=== PATIENT | male | born 1945 | race Caucasian/White ===

== ENCOUNTER 2024-04-05 08:22 | Inpatient (IN) | payer OTHER, SELFPAY ==
[2024-04-01 16:14] VITALS: BP 163/99
[2024-04-01 16:37] LABS: Urine Albumin Trace (Neg - Trace); Urine Bilirubin Negative (Negative); Urine Character Clear (Clear); Urine Color Yellow; Urine Glucose Negative (Negative); Urine Ketone 2+ (Negative); Urine Leukocyte Negative (Negative); Urine Nitrite Negative (Negative); Urine Occult Blood Negative (Negative); Urine Specific Gravity 1.025 (<1.030); Urine Urobilinogen Negative (Neg - 1+)
[2024-04-01 16:42] LABS: % Basophils 0.3 % (0-2); % Eosinophils 0.5 % (0-6); % Immature Granulocytes 0.3 % (0-0.5); % Monocytes 7.8 % (1.7-9.3); % Neutrophils 79.1 % (42.2-75.2); Absolute Lymphocytes 0.9 10^3/uL (1.2-3.4); Absolute Monocytes 0.6 10^3/uL (0.1-0.6); Hematocrit 39.1 % (39.0-52.0); Hemoglobin 14.2 g/dL (13.0-18.0); Mean Corp Hgb Conc. 36.3 g/dL (33.0-37.0); Mean Corpuscular Hgb 31.7 pg (27.0-31.0); Mean Corpuscular Volume 87.3 fL (80.0-94.0); Mean Platelet Volume 12.2 fL (7.4-10.4); Nucleated Red Blood Cells % 0 % (-); Platelet Count 176 10^3/uL (130-400); Red Blood Cell Count 4.48 10^6/uL (4.70-6.10); Red Cell Dist. Width 14.1 % (11.5-14.5); White Blood Cell Count 7.6 10^3/uL (4.8-10.8)
[2024-04-01 16:50] LABS: ALT (SGPT) 25 U/L (0-50); AST (SGOT) 35 U/L (17-59); Albumin 4.6 g/dl (3.5-5.0); Alkaline Phosphatase 83 U/L (38-126); Blood Urea Nitrogen 19 mg/dl (9-20); Calcium 9.7 mg/dl (8.4-10.2); Carbon Dioxide 31 mmol/L (22-30); Chloride 99 mmol/L (98-107); Glucose 104 mg/dl (70-99); Potassium 4.5 mmol/L (3.5-5.1); Sodium 141 mmol/L (135-145); Total Bilirubin 1.3 mg/dl (0.2-1.3); Total Protein 7.3 g/dl (6.3-8.2); eGFR > 60.00
[2024-04-01 19:05] VITALS: BP 165/94
--- NOTE | 2024-04-01 20:04 | ED.GENMED ---
History of Present Illness
General
Chief Complaint: Weakness
Source: patient
Exam Limitations: none
Time Seen by Provider: 04/01/24 17:58
History of Present Illness
History of Present Illness:
78-year-old male presents with rather abrupt change in mental status. He lives by himself. He typically is very functional. Family notes that he has been repeating himself over the past several months however it significantly got worse over the
past several days. He keeps saying that he should have let it go on this far and when asked to elaborate he is unable to express his thoughts. Patient denies headache chest pain abdominal pain or shortness of breath. He denies any unilateral
numbness or tingling. Family describes that he has been having trouble completing sentences. They describe that something is worrying him he is not sleeping.
Phy Exam
Physical Exam
Physical Exam:
General: Well-appearing male no acute respiratory distress
HEENT: Normocephalic atraumatic mucosa moist
Heart: Regular rate and rhythm no murmurs
Lungs: Clear no wheeze
Abdomen is soft nontender nondistended no guarding rebound normal bowel sounds
Neurologic exam: Alert oriented to person and place and time. No unilateral deficit on exam. When asked questions at times he fades off in the middle of a sentence and forgets his thought process. He does repeat himself throughout the exam. No
facial asymmetry
Course
Orders/Labs/Results
Orders:
Orders
04/01/24 16:17
Electrocardiogram (*1) Urgent
Reason for Study: Other
Other Reason for Exam: Possible Sepsis
04/01/24 16:18
EKG- Treatment ONCE
04/01/24 16:27
Comprehensive Metabolic Panel Urgent
04/01/24 16:28
Complete Blood Count/With Diff Urgent
Urinalysis Reflex To Culture Urgent
Date Specimen was Collected: 04/01/24
Time Specimen was Collected: 16:18
04/01/24 18:24
CT Head W/o Iv Contrast Urgent
Comment:
Reason For Exam: confusion
Abnormal Lab Results
04/01/24 04/01/24
16:27 16:28
RBC 4.48 L 10^6/uL
(4.70-6.10)
MCH 31.7 H pg
(27.0-31.0)
MPV 12.2 H fL
(7.4-10.4)
Absolute Lymphs (auto) 0.9 L 10^3/uL
(1.2-3.4)
Neutrophils % 79.1 H %
(42.2-75.2)
Lymphocytes % 12.0 L %
(20.5-51.1)
Carbon Dioxide 31 H mmol/L
(22-30)
Glucose 104 H mg/dl
(70-99)
Urine Ketones 2+ A
(Negative)
04/01/24 16:28
04/01/24 16:27
Vital Signs
Initial and Last Documented VS:
Initial Vital Signs
Temp Pulse Resp BP Pulse Ox
98 F 76 18 163/99 99
04/01/24 16:14 04/01/24 16:14 04/01/24 16:14 04/01/24 16:14 04/01/24 16:14
Last Documented Vital Signs
Temp Pulse Resp BP Pulse Ox
98 F 76 13 165/94 99
04/01/24 16:14 04/01/24 19:15 04/01/24 19:15 04/01/24 19:05 04/01/24 16:14
MDM/Problems Addressed
Differential Diagnosis Includes:
Change in mental status. Consider underlying process versus electrolyte abnormality versus TIA
Workup here initiated with blood work urinalysis and CT of head. CT of the head was negative. Labs without significant finding urinalysis negative. Patient has abruptly changed his mental status and is not back to baseline. Discussed with
patient and family treatment options. At this point, will keep in hospital for further evaluation
*Critical Care Note
Total Time (30-74mins, 75-104mins- exclusive of procedures): Not Applicable
ED Attending Note
-
Portions of this chart may have been created with voice recognition software.� Occasional wrong word or��sound alike� substitutions may have occurred due to the inherent limitations of voice recognition software.
Discharge Plan
Departure
Patient Disposition: Admit
Date of Disposition: 04/01/24
Time of Disposition: 20:41
Presentation/result/management discussed w/ accepting MD/DO: Hospitalist
Discharge Problem:
Altered mental status
Prescriptions:
No Action
atenolol 25 MG tablet
25 mg PO DAILY
docosahexaenoic acid-epa 1 CAP capsule
1 cap PO DAILY
red yeast rice 600 MG capsule
600 mg PO DAILY
multivitamin with folic acid [Tab-A-Sumaya] 1 TABLET tablet
1 tab PO DAILY
Referrals:
Kecia Mock PA-C [Family Provider] -
Interventions
Interventions:
*Risk Screen - Suicide Last Done: 04/01/24 20:22
*Neglect/Abuse Screening Last Done: 04/01/24 20:22
ED- Cardiac Assessment Last Done: 04/01/24 19:06
ED- Neurological Assessment Last Done: 04/01/24 19:06
ED- Pulmonary Assessment Last Done: 04/01/24 19:06
Discharge Date and Time
Print Language: SETSWANA
--- NOTE | 2024-04-01 21:41 | HPS.HSE ---
Family Physician
-
Family Physician: Kecia Mock
Chief Complaint
-
Confusion
History of Present Illness
Patient is a 78y M with PMH significant for hypertension and PAD who presents to ED for evaluation of confusion. History obtained from patient and his daughter at the bedside. Daughter states that patient has experienced a functional decline
over the past several months with decreased appetite, decreased energy, difficulty sleeping and some forgetfulness / word-finding issues. Over the past 1-2 weeks these symptoms have seemed more severe. Today the patient did not show up for his
usual latter-day services. Friends went to check on his and found him sitting in his chair at home - apparently too weak / tired to stand.
Patient was brought to the ED for further evaluation and treatment.
At the time of my examination in the ED, patient complains of feeling tired but has no other specific complaints. He specifically denies F/C, chest pain / dyspnea, N/V/D or urinary complaints.
Medical History
Past Medical History
Past Medical History: Reports Other
Additional Past Medical History:
Hypertension
ASCVD / PAD
Nephrolithiasis
Past Surgical History: Reports Other
Additional Past Surgical History:
LLE Fem-Pop Bypass
Social History
Tobacco: Non-smoker
Alcohol: None
Drug: None
Family History
Family History: Other (Father: CAD)
Allergies / Home Medications
Allergies reflects when Allergies were last updated in [facility].
Home Medications with original date entered in [facility]
Allergy/Medication List:
Allergies
Allergy/AdvReac Type Severity Reaction Status Date / Time
No Known Allergies Allergy Verified 04/01/24 16:14
Home Medications
atenolol 25 mg tablet 25 mg PO DAILY 01/22/10
docosahexaenoic acid (dha)-epa 120 mg-180 mg capsule 1 cap PO DAILY 01/22/10
multivitamin with folic acid 400 mcg tablet (Tab-A-Sumaya) 1 tab PO DAILY 01/22/10
red yeast rice 600 mg capsule 600 mg PO DAILY 01/22/10
Review of Systems
-
History Source: Patient
A 12 point ROS was completed and negative except as noted: Yes
Constitutional: Reports Fatigue; Denies Fever or Chills
EENT: Denies Sore Throat
Respiratory: Denies Cough or Trouble Breathing
Cardiac: Denies Chest Pain or Palpitations
Abdomen/GI: Reports Anorexia; Denies Abdominal Pain, Nausea, Vomiting or Diarrhea
: Denies Dysuria, Frequency or Flank Pain
Musculoskeletal: Denies Joint Pain or Edema
Neurological: Reports Weakness; Denies Dizzy, Headache or Numbness
Psych: Reports Dementia; Denies Depression or Anxiety
Physical Exam
Vital Signs
Vital Signs
Temp Pulse Resp BP Pulse Ox
98 F 76 13 165/94 99
04/01/24 16:14 04/01/24 19:15 04/01/24 19:15 04/01/24 19:05 04/01/24 16:14
Physical Exam
General: Other (78y M in no acute distress. Patient with flat affect. Mild tremor.)
HEENT: Moist mucous membranes and PERRLA
Respiratory: Clear; No Wheezes, Rales or Rhonchi
Cardiac: S1/S2 and Regular Rhythm; No Murmur
GI: Soft, Non Tender, Non Distended, Normal Bowel Sounds and Other (Umbilical hernia without tenderness.)
Musculoskeletal: No Clubbing, No Cyanosis and No Edema
Neuro: Awake, Alert, Oriented and Other (Oriented x 3, Somewhat slow speech. Bradykinesia, flat affect.)
Psych: No Agitated or Anxious
Laboratory Results
-
04/01/24 16:28
04/01/24 16:27
Laboratory Results
Total Bilirubin 1.3 mg/dl (0.2-1.3) 04/01/24 16:27
AST 35 U/L (17-59) 04/01/24 16:27
ALT 25 U/L (0-50) 04/01/24 16:27
Alkaline Phosphatase 83 U/L (38-126) 04/01/24 16:27
Impression/Plan
-
A/P: Patient is a 78y M with PMH significant for hypertension and ASCVD / PAD who presents to ED for evaluation of increased confusion, weakness and fatigue.
Change in Mental Status
Confusion
Fatigue
- Observe overnight for further evaluation and treatment.
- Evaluation in the ED thus far has been unremarkable.
- Examination is concerning for Parkinsonian features.
- Seems likely that current symptoms reflect progression of underlying process.
- Check MRI in AM for completeness.
- Neurology and Case Management evaluations.
- Follow for any evidence of new / acute symptoms.
Benign Hypertension
- Stable. Need to formalize med rec.
- Patient states that he takes atenolol and metoprolol - which certainly could contribute to degree of fatigue.
- Will continue with Toprol dose for now (as noted in External Med Summary).
- Adjust regimen ad needed for normotension.
ASCVD / PAD
- Stable. s/p prior L Fem-Pop bypass.
- No current complaints / concerns.
- ASA daily.
DVT Prophylaxis: SCDs
Code Status: Full
[2024-04-01 21:52] VITALS: BP 149/98
[2024-04-01 22:50] VITALS: BP 159/94; BMI 20.1
--- NOTE | 2024-04-01 22:57 | PTCARENOTE ---
Pt arrived onto floor @2257. Pt able to walk into room with no assistance. Pt AAOx3, with no complaints of pain or SOB at this time. Pt oriented to room and call cummings; will continue to monitor.
[2024-04-01] MEDS: NSS 1000 IV (23:32)
[2024-04-02] VITALS (7 sets, daily range): BP systolic 100–162; BP diastolic 61–91; PULSE 70–80; BMI 20.2
[2024-04-02 07:09] LABS: Hematocrit 37.7 % (39.0-52.0); Hemoglobin 13.1 g/dL (13.0-18.0); Mean Corp Hgb Conc. 34.7 g/dL (33.0-37.0); Mean Corpuscular Hgb 31.1 pg (27.0-31.0); Mean Corpuscular Volume 89.5 fL (80.0-94.0); Mean Platelet Volume 12.2 fL (7.4-10.4); Platelet Count 184 10^3/uL (130-400); Red Blood Cell Count 4.21 10^6/uL (4.70-6.10); Red Cell Dist. Width 14.1 % (11.5-14.5); White Blood Cell Count 6.4 10^3/uL (4.8-10.8)
[2024-04-02 07:30] LABS: Blood Urea Nitrogen 22 mg/dl (9-20); Calcium 9.3 mg/dl (8.4-10.2); Carbon Dioxide 29 mmol/L (22-30); Chloride 104 mmol/L (98-107); Estimated Creatinine Clearance 68 ml/min; Glucose 99 mg/dl (70-99); HDL Cholesterol 67 mg/dl; LDL Cholesterol, Calculated 64 mg/dl; Potassium 4.1 mmol/L (3.5-5.1); Sodium 141 mmol/L (135-145); Total Cholesterol 140 mg/dl (50-199); Triglyceride 48 mg/dl (10-149); Very Low Density Lipoprotein 9 mg/dl (0-30); eGFR > 60.00
[2024-04-02 07:57] LABS: TSH Reflex To Free T4 1.31 uIU/ml (0.47-4.68)
[2024-04-02 08:40] LABS: Ferritin 37.7 ng/ml (17.9-464.0)
[2024-04-02] MEDS: TOPROL XL 25 MG PO (08:47)
[2024-04-02] MEDS: LOW STRENGTH ASPIRIN 81 MG PO (08:47)
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
[2024-04-02 09:11] LABS: Folate > 20.0 ng/ml (2.76-20); Vitamin B12 456 pg/ml (239-931)
[2024-04-02 09:24] LABS: Erythrocyte Sed Rate 12 mm/hour (0-20)
[2024-04-02] MEDS: NSS 1000 IV (12:30)
--- NOTE | 2024-04-02 14:49 | W.PN.HOSP.TC ---
Today's Communication/Plan
-
.
Assessment / Plan
Assessment / Plan
Frail but comfortable in bed
Scleral anicteric
Moist mucous membranes
No JVD
CTA bilateral
Normal S1-S2 no murmurs
Soft nontender nondistended bowel sounds active
No peripheral pitting edema
Moves extremities spontaneously
AA
Toxic metabolic encephalopathy versus progressive decline in mental status possibly related to worsening Parkinson's versus depression versus dementia versus infection.
Check MRI
EEG
Neurology consult
LP
RPR TSH B12 folate HIV.
Hypertension continue antihypertensives
ASCVD/PAD
Continue aspirin
Anticipated Discharge: 24 - 48 hours
Subjective/Interval History
-
Date of Service: April 02, 2024
Seen and examined. No new. No acute overnight events.
Son at bedside. Provided update. Checking MRI. Neurology to evaluate.
Objective Data
-
Labs:
Laboratory Results
04/02/24
06:21
WBC 6.4
Hgb 13.1
Hct 37.7 L
Plt Count 184
Sodium 141
Potassium 4.1
Chloride 104
Carbon Dioxide 29
BUN 22 H
Creatinine 0.8
Glucose 99
Calcium 9.3
Vital Signs:
Vital Signs
Temp Pulse Resp BP Pulse Ox
97.8 F 73 20 146/78 99
04/02/24 11:08 04/02/24 11:08 04/02/24 11:08 04/02/24 11:08 04/02/24 11:08
--- NOTE | 2024-04-02 16:52 | CM ---
bond manager reviewed patient's chart and met with patient and patient lives alone in a split level home, patient is independent with adl's and ambulation, no dme.
Pharmacy: [facility]
PCP: Kecia Mock
Plan; Home when stable, no needs.
--- NOTE | 2024-04-02 18:16 | W.PN.UPDATE ---
Update Note
Progress Note Update
Notified by nursing staff that patient had an unwitnessed fall in the bathroom.
Patient reports being on the toilet, and sliding forward, using his knees to break the fall.
Details after that are vague. He describes hitting his right cheek against the plastic commode.
No loss of consciousness. Currently there is tenderness, no crepitus.
Will check CT facial bones.
--- NOTE | 2024-04-02 19:14 | FALL ---
Description of Fall:
434-2 Alexi Castillo fell from the toilet in the bathroom. He hit hid right cheek on a bedside commode that was in front of him there.
Injuries Noted:
He has pain there 6/10 on his R cheek bone. There is no break in the skin but it is slightly reddened.
Action Taken:
notified. CT scan ordered
Name of Provider Notified:
[2024-04-02] MEDS: TYLENOL 650 MG PO (20:33)
[2024-04-03] VITALS (9 sets, daily range): BP systolic 132–174; BP diastolic 77–99; PULSE 65–82
[2024-04-03] MEDS: NSS 1000 IV (05:01)
[2024-04-03] MEDS: TOPROL XL 25 MG PO (07:27)
[2024-04-03] MEDS: LOW STRENGTH ASPIRIN 81 MG PO (07:28)
--- NOTE | 2024-04-03 09:10 | EEG.RPT ---
Electroencephalogram Report
Recording
Date of EE04/03/24
Type of EEG: Routine
Length of EEG recordin minutes
Done with Video Recording: Yes
Patient Status: Inpatient
Recording Conditions: Awake and Drowsy
Hyperventilation Performed: No
Photic Stimulation Performed: Yes
Report
LESS THAN 1 HOUR EEG REPORT
EEG INTERPRETATION:
Unremarkable EEG for age
CLINICAL CORRELATION:
A normal EEG does not rule out a diagnosis of epilepsy. If clinical suspicion for seizure persists, a prolonged recording may be warranted.
Clinical correlation is advised.
METHODS:
A 21 channel digitized electroencephalogram (EEG) was performed in the Clinical Neurophysiology Laboratory. The 10/20 international system of electrode placement was used with ECG and lateral/vertical eye movements recorded. Persyst quantitative EEG
analysis was performed.
ELECTROENCEPHALOGRAPHER IMPRESSION(S):
Quality of study
Good
Background
Unremarkable, well maintained, medium amplitude alpha-frequency and unremarkable anterior-posterior voltage gradient
With eye opening the background activity changed to a low voltage mixture of frequencies.
Sleep
Drowsiness present
Photic Stimulation
Did not activate the record
ECG
Normal sinus rhythm
--- NOTE | 2024-04-03 11:26 | CM ---
Addendum entered by Colleen Pedro 04/03/24 15:37:
manager planning received a request from physician for possible options after discharge, plan is to home and family and patient is now agreeable to visiting nurses, options were reviewed and patient is agreeable to VN, rn case management discussed with
patient's son other options for care after discharge, per family they plan on staying with patient and then after that the are looking into assisted living, list of Memory Care facilities provided to patient, adult daycare and private duty nursing
also provided.
Plan; Home with VN
Original Note:
manager planning reviewed patient's chart and patient did well with physical therapy, plan is to home when stable.
Plan; Home when stable, no needs.
--- NOTE | 2024-04-03 15:37 | PTOTSP ---
DYE HOUSE VAT WORKER Evaluation
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
Quick Aphasia Battery Form 1A QAB overall score = 6.48/10.00 (8.9-10=no aphasia). Significant points lost for delayed responses to auditory comprehension questions. Patient could not write. Strongly suspect cognitive linguistic impairment
impacting score with further testing warranted.
Recommend:
1. Outpatient DYE HOUSE VAT WORKER consult for LSVT LOUD evaluation and cognitive linguistic evaluation/therapy.
2. Will continue to follow at the acute care level.
3. Supervision/assistance with higher level cognitive tasks.
--- NOTE | 2024-04-03 15:52 | VNURNOTE ---
Attempted to meet with patient to explain VN services. Patient was working with PT. Liaison will try again later.
--- NOTE | 2024-04-03 16:18 | W.PN.NEURO.1 ---
Today's Communication / Plan
-
OP f/u with neurology
Neuro Assessment/Plan
Assessment
Subacute onset of change in mental status. 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 Daughter states today that he has had a tremor for about a year. Mental status has improved.
MRI brain showed:
No acute intracranial abnormality noted.
Sequelae of mild small vessel ischemic disease with mild global atrophy.
There is a 0.5 x 0.7 x 0.6 cm extra-axial lesion along the anterior right frontal lobe, likely a meningioma.
EEG was normal.
Plan
-Reviewed MRI brain and EEG findings with patient and his son and daughter at bedside.
-Needs OP f/u with neurology to start Sinemet; reviewed likely dx of PD, how it is treated
-OP f/u with neurosurgery re: meningioma
-continue treatment of vascular risk factors
-No need for LP given improvements.
-for OP PT/[facility] program enrollment
-Neurology is signing off. Please call with further questions.
Subjective/Objective
Subjective Data
Date of Service: April 03, 2024
mental status improved
Objective Data
Vital Signs
Temp Pulse Resp BP Pulse Ox
97.4 F 70 18 154/91 99
04/03/24 15:27 04/03/24 15:27 04/03/24 15:27 04/03/24 15:27 04/03/24 15:27
Lab Results
04/02/24 06:21
04/02/24 06:21
Sodium 141 mmol/L (135-145) 04/02/24 06:21
Potassium 4.1 mmol/L (3.5-5.1) 04/02/24 06:21
BUN 22 mg/dl (9-20) H 04/02/24 06:21
Glucose 99 mg/dl (70-99) 04/02/24 06:21
Calcium 9.3 mg/dl (8.4-10.2) 04/02/24 06:21
LDL Cholesterol, Calc 64 mg/dl 04/02/24 06:21
Vitamin B12 456 pg/ml (239-931) 04/02/24 06:21
Patient Allergies
No Known Allergies Allergy (Verified 04/01/24 16:14)
Physical Exam
-
The patient is awake, alert and oriented x 3. He is able to follow commands and answer questions appropriately. Speech is very hypophonic; responses are slow/+bradyphrenia; however, knows date, location, able to identify family members at bedside;
provides own history; -3 on backwards spelling at first and then corrected himself. On cranial nerve assessment, pupils are 3 mm bilateral, round and reactive to light and accommodation. Visual cruz are full. Extraocular movements are mildly
reduced with upgaze. Facial sensations are intact and bilaterally symmetrical, there is no facial asymmetry. Hearing is intact bilaterally to normal conversation volume. Tongue palate and uvula are midline. Sternocleidomastoid strengths are full
bilaterally. Motor strengths are 5/5 bilateral upper and lower extremities on medical research [place] scale. There is no drift. No tremor today. Does have mild to moderate cogwheeling in BUE. Deep tendon reflexes are 2+ bilateral upper and lower
extremities and Babinski is absent bilaterally. Sensations of touch, temperature are intact and bilaterally symmetrical. There was no extinction noted on double simultaneous stimulation. Coordination is intact by finger to nose bilaterally.
--- NOTE | 2024-04-03 16:23 | W.PN.HOSP.TC ---
Today's Communication/Plan
-
Discussed with son, Ronny in room. Will need to review with sisters dc planning with potential dc to son's home tomorrow and long-term plans to be established.
At this point, pt no longer appears to be able to continue to live independently
Assessment / Plan
Assessment / Plan
Toxic metabolic encephalopathy versus progressive decline in mental status possibly related to worsening Parkinson's versus depression versus dementia versus infection.
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
son was unaware of pt having been dx with Parkinsonism
MRI: No acute intracranial abnormality noted.
Sequelae of mild small vessel ischemic disease with mild global atrophy.
There is a 0.5 x 0.7 x 0.6 cm extra-axial lesion along the anterior right frontal lobe, likely a meningioma.
EEG unremarkable
Neurology consult appreciated, reviewed with Dr. Samuel, does not believe LP is indicated
RPR TSH B12 folate all normal
Hypertension continue antihypertensives
ASCVD/PAD
Continue aspirin
Reviewed with son potential long-term care options, including memory unit
Reviewed with CM, who will further elaborate on plans
Anticipated Discharge: Within 24 hours
Subjective/Interval History
-
Date of Service: April 03, 2024
Flat affect, decreased cognition
Objective Data
-
Vital Signs:
Vital Signs
Temp Pulse Resp BP Pulse Ox
97.4 F 70 18 154/91 99
04/03/24 15:27 04/03/24 15:27 04/03/24 15:27 04/03/24 15:27 04/03/24 15:27
I&O
04/02/24 04/03/24 04/04/24
06:59 06:59 06:59
Intake Total 1140 / 1140
Balance 1140 / 1140
Review of Systems
-
History Source: Family (son Mj in room, extensive discussion)
Constitutional: Denies Fever
EENT: Reports No Symptoms Reported
Respiratory: Reports No Symptoms
Cardiac: Reports No Symptoms
Abdomen/GI: Reports No Symptoms
Physical Exam
-
General: Well Developed, Well Nourished and No Apparent Distress
HEENT: Normocephalic, Atraumatic and Moist Mucous Membranes
Respiratory: Clear to Auscultation; Negative Wheezes, Rales or Rhonchi
Cardiac: Regular Rhythm and S1/S2
GI: Nontender and Nondistended
Musculoskeletal: No Clubbing, No Cyanosis and No Edema
Neuro: Awake and Other (significant cogwheel rigidity)
Psych: Calm
[2024-04-04] VITALS (9 sets, daily range): BP systolic 125–166; BP diastolic 63–101; PULSE 69–80
[2024-04-04] MEDS: TOPROL XL 25 MG PO (08:43)
[2024-04-04] MEDS: LOW STRENGTH ASPIRIN 81 MG PO (08:43)
--- NOTE | 2024-04-04 10:20 | VNURNOTE ---
Home Health Liaison spoke with son Mj to discuss [facility] nurse/therapy, visits, schedule and homebound status. He is agreeable and understands that visits at home will be 2-3 x per week to assess and teach medical management. Per son Mj, patient
has not seen PCP in a few years. Explained [facility] can start services after seen by PCP, since it has been > 1 year. Per son, PCP appt is scheduled in a week. He will try to move up appt. [facility] liaison contact information provided. Patient is aware
that [facility] will contact them for start of care in 1-2 days after discharge from .
[facility] referral completed in [facility].
--- NOTE | 2024-04-04 10:59 | PTCARENOTE ---
While working with therapy pt had an episode of weakness, needed assistance back to his chair. Vital signs stable , apple juice provided, patient was able to answer questions slowly but approptiately as is his baseline. Family interested in rehab
prior to patient going home. Hospitalist aware.
--- NOTE | 2024-04-04 15:32 | CM ---
Chart reviewed and per updated physical therapy notes and overall progress with nursing and therapy recommendation now is for skilled placement, options reviewed with patient and son and they are requesting skilled placement at [facility], referral
sent to [facility].
Plan; Skilled placement at [facility].
--- NOTE | 2024-04-04 19:40 | W.PN.HOSP.TC ---
Today's Communication/Plan
-
pending dc to snf as he is unstable on his feet
Assessment / Plan
Assessment / Plan
Toxic metabolic encephalopathy versus progressive decline in mental status possibly related to worsening Parkinson's versus depression versus dementia versus infection.
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
son was unaware of pt having been dx with Parkinsonism
MRI: No acute intracranial abnormality noted.
Sequelae of mild small vessel ischemic disease with mild global atrophy.
There is a 0.5 x 0.7 x 0.6 cm extra-axial lesion along the anterior right frontal lobe, likely a meningioma.
EEG unremarkable
Neurology consult appreciated, reviewed with Dr. Samuel, does not believe LP is indicated
RPR TSH B12 folate all normal
Hypertension continue antihypertensives
ASCVD/PAD
Continue aspirin
Reviewed with son potential longterm care options, including memory unit
Reviewed with CM, who will further elaborate on plans
Anticipated Discharge: Within 24 hours
Subjective/Interval History
-
Date of Service: April 04, 2024
Seen and examined. discussed case with son and dauther at bedside. potential start for sinemet, awaiitng to hear from Neurology about this.
Objective Data
-
Vital Signs:
Vital Signs
Temp Pulse Resp BP Pulse Ox
97.8 F 81 18 152/88 98
04/04/24 15:11 04/04/24 15:11 04/04/24 15:11 04/04/24 15:11 04/04/24 15:11
I&O
04/03/24 04/04/24 04/05/24
06:59 06:59 06:59
Intake Total 1140 / 1140 1140 / 1140 960 / 960
Balance 1140 / 1140 1140 / 1140 960 / 960
[2024-04-05] VITALS (9 sets, daily range): BP systolic 126–165; BP diastolic 84–99; PULSE 71–97; BMI 20.4
[2024-04-05] MEDS: LOW STRENGTH ASPIRIN 81 MG PO (08:33)
[2024-04-05] MEDS: TOPROL XL 25 MG PO (08:33)
--- NOTE | 2024-04-05 11:22 | CM ---
Addendum entered by Sirisha Gaspar 04/05/24 16:33:
Spoke with patient's daughter to discuss discharge plan
Explained that bed is available @ [facility] tomorrow; daughter is agreeable with father going to [facility]
Notified PT/OT and requested that they assess patient later today or first thing tomorrow to facilitate AUTH submission
Plan: Discharge to [facility] tomorrow pending AUTH approval
Original Note:
CM spoke with patient's daughter this morning to discuss discharge planning; she verified that family is agreeable to short term SNF placement
Daughter just called and requested that we send additional referrals. Referrals sent to [facility], [facility]; and [facility] just received a call from Edwin @ [facility]; the facility is interested pending bed availability at time of discharge; and reported they do not accept admissions over the weekend
Plan: discharge to SNF when medically stable pending bed availability and insurance AUTH approval
--- NOTE | 2024-04-05 14:13 | W.PN.NEURO.1 ---
Today's Communication / Plan
-
start Sinemet 25/100 TID
re: meningioma, right frontal, recheck MRI of brain with and without contrast in 2024
Neuro Assessment/Plan
Assessment
Subacute onset of change in mental status. 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 Daughter states today that he has had a tremor for about a year. Mental status has improved.
MRI brain showed:
No acute intracranial abnormality noted.
Sequelae of mild small vessel ischemic disease with mild global atrophy.
There is a 0.5 x 0.7 x 0.6 cm extra-axial lesion along the anterior right frontal lobe, likely a meningioma.
EEG was normal.
Plan
start Sinemet 25/100 TID
re: meningioma, right frontal, recheck MRI of brain with and without contrast in 2024
continue treatment of vascular risk factors
for OP PT/[facility] program enrollment as outpatient
BARBARA scan as outpatient
Please call with further questions.
Subjective/Objective
Subjective Data
Date of Service: April 05, 2024
Objective Data
Vital Signs
Temp Pulse Resp BP Pulse Ox
36.4 C 74 18 146/94 98
04/05/24 11:28 04/05/24 11:28 04/05/24 11:28 04/05/24 11:28 04/05/24 11:28
Lab Results
04/02/24 06:21
04/02/24 06:21
Sodium 141 mmol/L (135-145) 04/02/24 06:21
Potassium 4.1 mmol/L (3.5-5.1) 04/02/24 06:21
BUN 22 mg/dl (9-20) H 04/02/24 06:21
Glucose 99 mg/dl (70-99) 04/02/24 06:21
Calcium 9.3 mg/dl (8.4-10.2) 04/02/24 06:21
LDL Cholesterol, Calc 64 mg/dl 04/02/24 06:21
Vitamin B12 456 pg/ml (605-723) 04/02/24 06:21
Patient Allergies
No Known Allergies Allergy (Verified 04/01/24 16:14)
Past History
Past History
ED Past Medical History: HTN, Hypercholesterolemia and Other (PAD, mitral valve insufficiency)
ED Past Surgical History: Other (L fem-pop)
Social History
Tobacco: Non-smoker
Alcohol: None
Drug: None
Living: alone
Family History
Family History: Other (reviewed and non-contributory)
Medications
-
Medications:
Generic Name Dose Route Start Last Admin
Trade Name Freq PRN Reason Stop Dose Admin
Acetaminophen 650 mg 04/01/24 22:53 04/02/24 20:33
Acetaminophen 325 Mg Tablet PO 04/29/24 22:52 650 mg
Q4HPRN PRN Administration
Mild Pain / Temp > 101
Aspirin 81 mg 04/02/24 08:00 04/05/24 08:33
Aspirin 81 Mg Chewable Tablet PO 04/30/24 07:59 81 mg
DAILY LIGIA Administration
Metoprolol Succinate 25 mg 04/02/24 08:00 04/05/24 08:33
Metoprolol 25 Mg Extended Release Tablet PO 04/30/24 07:59 25 mg
DAILY LIGIA Administration
--- NOTE | 2024-04-05 14:36 | W.PN.HOSP.TC ---
Today's Communication/Plan
-
Start sienmet
DC to [facility] when bed available
Assessment / Plan
Assessment / Plan
NAD, sitting in bedside chair
Scleral anicteric, senile arcus
Moist mucous membranes
CTA bilateral
Normal S1-S2 no murmurs
Soft nontender nondistended bowel sounds active
No peripheral pitting edema
Moves extremities spontaneously, resting tremor
Flat affect
AAOx3
Toxic metabolic encephalopathy versus progressive decline in mental status possibly related to worsening Parkinson's versus depression versus dementia versus infection.
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
son was unaware of pt having been dx with Parkinsonism
MRI: No acute intracranial abnormality noted.
Sequelae of mild small vessel ischemic disease with mild global atrophy.
There is a 0.5 x 0.7 x 0.6 cm extra-axial lesion along the anterior right frontal lobe, likely a meningioma.
EEG unremarkable
Neurology consult appreciated, reviewed with Dr. Samuel, does not believe LP is indicated
- I spoke with neurology today. They will speak with family if agreeable start Sinemet.
Hypertension continue antihypertensives
ASCVD/PAD
Continue aspirin
Reviewed with son potential half-way care options, including memory unit
Reviewed with CM, who will further elaborate on plans
Awaiitng to hear back from [facility] if able to take.
Anticipated Discharge: Within 24 hours
Subjective/Interval History
-
Date of Service: April 05, 2024
Seen and examined. Sitting in bedside chair. Comfortable. Knows the day, where he is. Does not know why he is in the hospital though. Very flat affect. Resting tremor as well.
Objective Data
-
Vital Signs:
Vital Signs
Temp Pulse Resp BP Pulse Ox
97.6 F 74 18 146/94 98
04/05/24 11:28 04/05/24 11:28 04/05/24 11:28 04/05/24 11:28 04/05/24 11:28
I&O
04/04/24 04/05/24 04/06/24
06:59 06:59 06:59
Intake Total 1140 / 1140 960 / 960
Balance 1140 / 1140 960 / 960
[2024-04-05] MEDS: SINEMET 25-100 1 TABLET PO ×2 (14:41→22:17)
[2024-04-05] MEDS: SINEMET 25-100 PO (15:26)
[2024-04-06 03:25] VITALS: BP 137/82
[2024-04-06 07:40] VITALS: BP 158/90
[2024-04-06 08:54] VITALS: BP 157/94; PULSE 78; O2SAT 99
[2024-04-06] MEDS: TOPROL XL 25 MG PO (09:25)
[2024-04-06] MEDS: SINEMET 25-100 1 TABLET PO (09:26)
[2024-04-06] MEDS: LOW STRENGTH ASPIRIN 81 MG PO (09:26)
[2024-04-06 11:20] VITALS: BP 150/96
--- NOTE | 2024-04-06 12:59 | CM ---
Patient has been approved and a bed is available at [facility] today for patient, Auth for 5 days skilled [id number], NRD 04/10/24, follow up at [phone].
[facility]
Report [phone]

Plan; Skilled placement at [facility].
[2024-04-06 15:14] VITALS: BP 154/93
--- NOTE | 2024-04-06 15:29 | W.PN.HOSP.TC ---
Today's Communication/Plan
-
dc snf
Assessment / Plan
Assessment / Plan
NAD, sitting in bedside chair
Scleral anicteric, senile arcus
Moist mucous membranes
CTA bilateral
Normal S1-S2 no murmurs
Soft nontender nondistended bowel sounds active
No peripheral pitting edema
Moves extremities spontaneously, resting tremor
Flat affect
AAOx3
Toxic metabolic encephalopathy versus progressive decline in mental status possibly related to worsening Parkinson's versus depression versus dementia versus infection.
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
son was unaware of pt having been dx with Parkinsonism
MRI: No acute intracranial abnormality noted.
Sequelae of mild small vessel ischemic disease with mild global atrophy.
There is a 0.5 x 0.7 x 0.6 cm extra-axial lesion along the anterior right frontal lobe, likely a meningioma.
EEG unremarkable
Neurology consult appreciated, reviewed with Dr. Samuel, does not believe LP is indicated
- I spoke with neurology today. They will speak with family if agreeable start Sinemet.
Hypertension continue antihypertensives
ASCVD/PAD
Continue aspirin
Reviewed with son potential superintendent [employer] terminal care options, including memory unit
Reviewed with CM, who will further elaborate on plans
Awaiitng to hear back from [facility] if able to take.
Anticipated Discharge: Today
Subjective/Interval History
-
Date of Service: April 06, 2024
no new complaints
Objective Data
-
Vital Signs:
Vital Signs
Temp Pulse Resp BP Pulse Ox
97.6 F 84 18 154/93 99
04/06/24 15:14 04/06/24 15:14 04/06/24 15:14 04/06/24 15:14 04/06/24 15:14
I&O
04/05/24 04/06/24 04/07/24
06:59 06:59 06:59
Intake Total 960 / 960 960 / 960
Output Total 200 / 200
Balance 960 / 960 760 / 760
--- NOTE | 2024-04-06 15:32 | W.DCSUMMARY ---
Discharge Summary
Discharge Data
Date of Admission: 04/05/24
Date of Discharge: 04/06/24
-
Pending Results: No
Hospital Course
78M hx of HTN PAD presents for evaluation of confusion that has been worsening over the last couple of months and began rapidly worsening over the last [address] as below. MRI as below. EEG as below. Evaluated by neurology potential
concern for Parkinson's or Parkinson's with dementia based off of exam findings. Neurology recommended to start Sinemet for likely diagnosis of Parkinson's. Additionally as MRI reported meningioma neurology recommended outpatient neurosurgery
follow-up. Physical therapy evaluated initially was planning to discharge home however was unsteady without walker. Therefore has recommended discharge to SNF.
CT Brain
IMPRESSION:
No acute intracranial abnormality noted.
Brain MRI
IMPRESSION:
No acute intracranial abnormality noted.
Sequelae of mild small vessel ischemic disease with mild global atrophy.
There is a 0.5 x 0.7 x 0.6 cm extra-axial lesion along the anterior right frontal lobe, likely a meningioma.
EEG
INTERPRETATION:
Unremarkable EEG for age
Discharge Plan
-
Patient Disposition: Prison/SNF
Discharge Diagnosis/Procedures: Parkinsons +- dementia
HTN and PAD
Diet: As tolerated
Activity: As tolerated
Driving Restrictions: No driving
Activity Restrictions/Additional Instructions:
Presents for evaluation of confusion that has been worsening over the last couple of months and began rapidly worsening over the last [address] as below. MRI as below. EEG as below. Evaluated by neurology potential concern for Parkinson's
or Parkinson's with dementia based off of exam findings. Neurology recommended to start Sinemet for likely diagnosis of Parkinson's. Additionally as MRI reported meningioma neurology recommended outpatient neurosurgery follow-up. Physical therapy
evaluated initially was planning to discharge home however was unsteady without walker. Therefore has recommended discharge to SNF.
CT Brain
IMPRESSION:
No acute intracranial abnormality noted.
Brain MRI
IMPRESSION:
No acute intracranial abnormality noted.
Sequelae of mild small vessel ischemic disease with mild global atrophy.
There is a 0.5 x 0.7 x 0.6 cm extra-axial lesion along the anterior right frontal lobe, likely a meningioma.
EEG
INTERPRETATION:
Unremarkable EEG for age
Referrals:
Kecia Mock PA-C [Family Provider] -
Prescriptions:
New
aspirin 81 mg Tablet,Chewable
81 mg PO DAILY 30 Days Qty: 30 0RF
metoprolol succinate 25 mg Tablet Extended Release 24 Hr
25 mg PO DAILY 30 Days Qty: 30 0RF
carbidopa-levodopa 25-100 mg Tablet
1 tab PO TID 30 Days Qty: 90 0RF
Continued
docosahexaenoic acid-epa 1 CAP capsule
1 cap PO DAILY
red yeast rice 600 MG capsule
600 mg PO DAILY
multivitamin with folic acid [Tab-A-Sumaya] 1 TABLET tablet
1 tab PO DAILY
Discontinued
atenolol 25 MG tablet
25 mg PO DAILY
Discharge Orders:
Discharge Patient (As Directed); Ordered 04/06/24
Ordered By: Elpidio Baca
Discharge Date and Time
Print Language: MONTSERRATIAN
== END 2024-04-06 15:44 | DRG 56 ==
LOC: 4 WEST ACU 08:22
PROVIDERS: ADMITTING PHYSICIAN Hospitalist; ATTENDING PHYSICIAN Hospitalist; EMERGENCY PHYSICIAN Emergency Medicine; FAMILY PHYSICIAN Physician Assistant Medical; OTHER PHYSICIAN Psychiatry & Neurology Neurology
DX: G20.A1 Parkinson's disease without dyskinesia, without mention of fluctuations (principal); G92.8 Other toxic encephalopathy; F02.84 Dementia in other diseases classified elsewhere, unspecified severity, with anxiety; I10 Essential (primary) hypertension; I34.0 Nonrheumatic mitral (valve) insufficiency; I77.810 Thoracic aortic ectasia; I73.9 Peripheral vascular disease, unspecified; D32.9 Benign neoplasm of meninges, unspecified; G47.00 Insomnia, unspecified; E78.5 Hyperlipidemia, unspecified; I25.10 Atherosclerotic heart disease of native coronary artery without angina pectoris; K42.9 Umbilical hernia without obstruction or gangrene; R53.1 Weakness; R53.81 Other malaise; R53.83 Other fatigue; Z79.899 Other long term (current) drug therapy; Z87.442 Personal history of urinary calculi; Z82.49 Family history of ischemic heart disease and other diseases of the circulatory system
CPT/HCPCS: 70450; 70486; 70553; 80048; 80053; 80061; 81003; 82607; 82728; 82746; 84443; 85025; 85027; 85652; 92507; 92523; 92610; 93005; 95816; 97116; 97129; 97163; 97167; 97530; 97535; 99285

== ENCOUNTER → 2024-04-10 09:13 | Outpatient (REF) | payer OTHER, SELFPAY ==
[2024-04-10 11:42] LABS: % Basophils 0.5 % (0-2); % Eosinophils 0.9 % (0-6); % Immature Granulocytes 0.2 % (0-0.5); % Lymphocytes 14.6 % (20.5-51.1); % Monocytes 10.7 % (1.7-9.3); % Neutrophils 73.1 % (42.2-75.2); Absolute Eosinophils 0.1 10^3/uL (0-0.7); Absolute Lymphocytes 0.8 10^3/uL (1.2-3.4); Absolute Monocytes 0.6 10^3/uL (0.1-0.6); Absolute Neutrophils 4.2 10^3/uL (1.4-6.5); Hematocrit 38.6 % (39.0-52.0); Hemoglobin 13.4 g/dL (13.0-18.0); Mean Corp Hgb Conc. 34.7 g/dL (33.0-37.0); Mean Corpuscular Hgb 32.2 pg (27.0-31.0); Mean Corpuscular Volume 92.8 fL (80.0-94.0); Nucleated Red Blood Cells % 0 % (-); Platelet Count 194 10^3/uL (130-400); Red Blood Cell Count 4.16 10^6/uL (4.70-6.10); Red Cell Dist. Width 14.3 % (11.5-14.5); White Blood Cell Count 5.8 10^3/uL (4.8-10.8)
[2024-04-10 11:44] LABS: ALT (SGPT) 23 U/L (0-50); AST (SGOT) 30 U/L (17-59); Albumin 4.2 g/dl (3.5-5.0); Alkaline Phosphatase 75 U/L (38-126); Blood Urea Nitrogen 29 mg/dl (9-20); Calcium 9.4 mg/dl (8.4-10.2); Carbon Dioxide 33 mmol/L (22-30); Chloride 100 mmol/L (98-107); Glucose 91 mg/dl (70-99); HDL Cholesterol 66 mg/dl; LDL Cholesterol, Calculated 104 mg/dl; Magnesium 2.7 mg/dl (1.6-2.3); Potassium 4.7 mmol/L (3.5-5.1); Sodium 140 mmol/L (135-145); Total Bilirubin 0.9 mg/dl (0.2-1.3); Total Cholesterol 181 mg/dl (50-199); Total Protein 6.6 g/dl (6.3-8.2); Triglyceride 56 mg/dl (10-149); Very Low Density Lipoprotein 11 mg/dl (0-30); eGFR > 60.00
[2024-04-10 12:11] LABS: TSH 1.96 uIU/ml (0.47-4.68)
== END ==
LOC: OLABN 09:13
PROVIDERS: ATTENDING PHYSICIAN Student in an Organized Health Care Education/Training Program
DX: G20.C Parkinsonism, unspecified (principal); I10 Essential (primary) hypertension
CPT/HCPCS: 36415; 80053; 80061; 83735; 84443; 85025

== ENCOUNTER → 2024-04-17 15:21 | Outpatient (REF) | payer OTHER, SELFPAY ==
[2024-04-17 16:35] LABS: Urine Albumin Negative (Neg - Trace); Urine Bilirubin Negative (Negative); Urine Character Clear (Clear); Urine Color Yellow; Urine Glucose Negative (Negative); Urine Ketone Negative (Negative); Urine Leukocyte Negative (Negative); Urine Nitrite Negative (Negative); Urine Occult Blood 1+ (Negative); Urine Urobilinogen Negative (Neg - 1+)
[2024-04-17 16:54] LABS: Urine Red Blood Cell 26-30 /HPF (0-2); Urine Squamous Cell 0-2 /LPF (Few)
[2024-04-17 16:55] LABS: Urine Bacteria Many (Negative); Urine White Cell 0-2 /HPF (0-5)
== END ==
LOC: OLABN 15:21
PROVIDERS: ATTENDING PHYSICIAN Student in an Organized Health Care Education/Training Program
DX: R41.82 Altered mental status, unspecified (principal)
CPT/HCPCS: 81003; 81015; 87086

== ENCOUNTER → 2024-04-20 10:03 | Outpatient (REF) | payer OTHER, SELFPAY ==
[2024-04-20 11:07] LABS: Magnesium 2.2 mg/dl (1.6-2.3)
== END ==
LOC: OLABN 10:03
PROVIDERS: ATTENDING PHYSICIAN Student in an Organized Health Care Education/Training Program
DX: E83.41 Hypermagnesemia (principal)
CPT/HCPCS: 36415; 83735

== ENCOUNTER 2024-05-27 13:38 | Emergency (ER) | payer OTHER, SELFPAY ==
[2024-05-27 13:40] VITALS: BP 108/59; BMI 21.5
[2024-05-27 14:00] VITALS: BP 109/64
[2024-05-27 14:30] VITALS: BP 125/80
[2024-05-27 15:00] VITALS: BP 128/70
--- NOTE | 2024-05-27 15:22 | ED.GENMED ---
History of Present Illness
General
Chief Complaint: Fall
Source: other (Nursing facility)
Time Seen by Provider: 05/27/24 13:39
History of Present Illness
History of Present Illness:
Patient apparently fell and hit his head. No LOC. No syncope. No complaints noted by the patient or staff. Sent for further evaluation
Past History
Past History
ED Past Medical History: HTN, Hypercholesterolemia and Other (PAD, mitral valve insufficiency)
ED Past Surgical History: Other (L fem-pop)
Social History
Tobacco: Non-smoker
Alcohol: None
Drug: None
Living: alone
Family History
Family History: Other (reviewed and non-contributory)
Review of Systems
Review of Systems
All Other Systems: Not applicable
Respiratory: Reports no symptoms
Cardiac: Reports no symptoms
Neurological: Reports no symptoms
Phy Exam
Physical Exam
Physical Exam:
TRAUMA EXAM:
VITAL SIGNS: Vital signs reviewed, cooperative
DISTRESS: No active disease
EYES: Pupils reactive, no orbital trauma
NOSE: No deformity or epistaxis
FACE AND SCALP: No scalp or facial trauma, external canals no blood
NECK: Supple nontender
BACK: Back nontender, pelvis stable to compression
RESPIRATORY: No distress, breath sounds normal, no tender chest wall
CARDIAC: No murmur, pulses equal and strong
ABDOMEN: Soft nontender bowel sounds normal
SKIN: Skin intact no bleeding, color normal
EXTREMITIES: Nontender
NEUROLOGICAL: Alert, flat affect. Nonfocal.
PSYCH: Mood affect normal
Course
Orders/Labs/Results
Orders:
Orders
05/27/24 14:42
CT Cervical Spine W/o Iv Contr Urgent
Comment:
Reason For Exam: Fall/head injury
CT Head W/o Iv Contrast Urgent
Comment:
Reason For Exam: Fall/head injury
Cardiac Monitoring- Treatment ONCE
Vital Signs
Initial and Last Documented VS:
Initial Vital Signs
Temp Pulse Resp BP Pulse Ox
98.3 F 78 16 108/59 99
05/27/24 13:40 05/27/24 13:40 05/27/24 13:40 05/27/24 13:40 05/27/24 13:40
Last Documented Vital Signs
Temp Pulse Resp BP Pulse Ox
98.3 F 77 15 125/80 99
05/27/24 13:40 05/27/24 14:30 05/27/24 14:30 05/27/24 14:30 05/27/24 14:30
MDM/Problems Addressed
Differential Diagnosis Includes:
Patient medically stable and no acute issues found. However based on mechanism CT head and cervical spine will be obtained
*Radiology
Radiology exam reviewed: radiology read reviewed (No acute findings on CT)
*Pulse Oximetry
Patient hypoxic: no
*Tax Collector Interpretation
Rate: normal
Interpretation: normal
Heart Rate: 67
Rhythm: sinus
*Critical Care Note
Total Time (30-74mins, 75-104mins- exclusive of procedures): Not Applicable
ED Attending Note
-
Portions of this chart may have been created with voice recognition software.� Occasional wrong word or��sound alike� substitutions may have occurred due to the inherent limitations of voice recognition software.
Discharge Plan
Departure
Patient Disposition: Home (Routine Discharge)
Date of Disposition: 05/27/24
Time of Disposition: 16:28
Patient with high blood pressure during this ER visit?: Yes
Discharge Problem:
Fall/head injury
Instructions: Head Injury in Adults (DC), BLOOD PRESSURE
Prescriptions:
No Action
docosahexaenoic acid-epa 1 CAP capsule
1 cap PO DAILY
red yeast rice 600 MG capsule
600 mg PO DAILY
multivitamin with folic acid [Tab-A-Sumaya] 1 TABLET tablet
1 tab PO DAILY
aspirin 81 mg Tablet,Chewable
81 mg PO DAILY 30 Days Qty: 30 0RF
metoprolol succinate 25 mg Tablet Extended Release 24 Hr
25 mg PO DAILY 30 Days Qty: 30 0RF
carbidopa-levodopa 25-100 mg Tablet
1 tab PO TID 30 Days Qty: 90 0RF
Referrals:
Bravo Sanches I., [Family Provider] - Follow up in 2-3 days
Interventions
Interventions:
*Risk Screen - Suicide Last Done: 05/27/24 13:40
*General Assessment Last Done: 05/27/24 13:40
*Neglect/Abuse Screening Last Done: 05/27/24 13:40
ED- Fall Risk Assessment Last Done: 05/27/24 13:40
ED-Musculoskeletal Assessment Last Done: 05/27/24 15:31
ED- Neurological Assessment Last Done: 05/27/24 15:31
ED-Skin Assessment Last Done: 05/27/24 15:31
Discharge Date and Time
Print Language: BULGARIAN
== END 2024-05-27 17:15 | disposition home or self-care (01) ==
LOC: EMR 13:38
PROVIDERS: EMERGENCY PHYSICIAN Emergency Medicine; FAMILY PHYSICIAN Internal Medicine; OTHER PHYSICIAN Physician Assistant Medical
DX: S09.90XA Unspecified injury of head, initial encounter (principal); W19.XXXA Unspecified fall, initial encounter; I10 Essential (primary) hypertension; E78.00 Pure hypercholesterolemia, unspecified
CPT/HCPCS: 99284; 70450; 72125